=== PATIENT | female | born 1970 | race Caucasian/White ===

== ENCOUNTER → 2016-12-20 | Outpatient (CLI) | payer OTHER ==
[2016-12-20 10:45] LABS: Basophils % (A) 1 %; CH 30.4; CHCM 32.2; Eosinophils # (A) 0.1 k/uL (0-0.7); Eosinophils % (A) 2 %; HCT 39.4 % (34.0-46.0); HDW 2.18; HGB 12.2 gm/dL (11.4-16.0); Luc # (Auto) 0.12; Luc % (Auto) 2; Lymphocytes # (A) 2.1 k/uL (1.0-4.8); Lymphocytes % (A) 31 %; MCH 29.5 pg (25.0-35.0); Mean Platelet Volume 7.5; Monocytes # (A) 0.4 k/uL (0-1.0); Monocytes % (A) 5 %; Neutrophils # (A) 4.1 k/uL (1.3-7.7); Neutrophils % (A) 60 %; RBC 4.14 m/uL (3.80-5.40); RDW 12.4 % (11.5-15.5); WBC 6.7 k/uL (3.8-10.6); WBC (Perox) 6.54
== END | disposition home or self-care (01) ==
LOC: LABPAT 10:19
PROVIDERS: ATTEND Obstetrics & Gynecology
DX: Z01.812 Encounter for preprocedural laboratory examination (principal); N92.0 Excessive and frequent menstruation with regular cycle; Z31.84 Encounter for fertility preservation procedure
CPT/HCPCS: 85025

== ENCOUNTER 2016-12-31 07:49 | Day surgery (SDC) | payer OTHER ==
[2016-12-26 08:54] VITALS: BMI 24.0
--- NOTE | 2016-12-26 15:18 | HP ---
DATE OF ADMISSION: 12/31/16. This is a 46-year-old white female who presented initially from a consultation from Dr. Ivan's office with a request for NovaSure endometrial ablation for heavy crampy long menstrual cycles. Menses are occurring every 28 to 30 days, but are 7 days in duration and very heavy with large clots. Patient at the same time is requesting laparoscopic tubal ligation for contraceptive purposes. An endometrial biopsy has been performed in the office and this was within normal limits. Risks and benefits of the surgery have been discussed in detail. I have also discussed with the patient in very good option of Mirena IUD, which she is declining. The remaining review of systems is negative. PAST MEDICAL HISTORY: Significant for multiple sclerosis. PAST SURGICAL HISTORY: section in 1991. CURRENT MEDICATIONS: Baby aspirin daily. Vitamin B12 daily. Vitamin D3 daily. She uses a hair, skin and nails oral preparation along with atorvastatin 10 mg orally daily. She takes loratadine 10 mg as needed, magnesium oxide daily, Plavix daily. Tylenol [id number] as needed for pain. ALLERGIES: NONE known. SOCIAL HISTORY: Negative for alcohol or drug use. The patient does have a history of smoking 1 pack per day tobacco but quit in the past. FAMILY HISTORY: Family history is noncontributory. PHYSICAL EXAM: On exam, this is a pleasant white female, she is 5 feet 0 inches, 129 pounds, BMI is 25. Blood pressure 124/88 in the seated position. HEENT examination reveals good dentition. No thyromegaly, trachea in the midline. Breast exam reveals breasts to be bilaterally symmetric, no skin dimpling, nipple discharge, axillary adenopathy or discernible lesions or masses. Chest is clear to auscultation in all carlton anteriorly and posteriorly. Cardiac exam reveals regular rate and rhythm with no murmur, click or rub. ABDOMEN: Soft, nontender, no organosplenomegaly, scaphoid. No CVA tenderness. Extremities reveal no edema, good range of motion in all 4 extremities. On pelvic examination, external genitalia is well estrogenized and age appropriate. Cervix is small in nulliparous in appearance. The uterus is small, anteverted, mobile, nontender. Adnexa are small, equal bilaterally, symmetric, with no masses or enlargement. The rectal exam reveals good sphincter tone, no hemorrhoids or rectal masses are noted. No inguinal adenopathy is appreciated. IMPRESSION: Undesired fertility, menorrhagia, and severe dysmenorrhea. Patient requesting NovaSure ablation, hysteroscopy, laparoscopic tubal ligation with Filshie clips. PLAN: I discussed with the patient the risks and benefits of this surgery, along with reasonable alternatives. Other contraceptive choices have all been provided and declined. The risk of bleeding, infection, perforation or damage to bowel, bladder, ureters, blood vessels or indeed any pelvic or abdominal organs have all been discussed. Patient's questions have been answered to the best of my ability. She has been provided with written brochures to detail these procedures which she has reviewed.
[~2016-12-31 07:49] MED LIST: DEXAMETHASONE SOD PHOSPHATE 10 MG/ML 1 ML VIAL IV ONE; LACTATED RINGERS 1,000 ML IV SCH; MIDAZOLAM 2 MG/2 ML VIAL IV PRN; ONDANSETRON 4 MG/2 ML VIAL IVP ONE; Pre Op ABX Message 1 EACH MISC MISCELLANE ONE
[2016-12-31 08:23] VITALS: TEMP 97.4
[2016-12-31] MEDS ORDERED: LIDOCAINE 1% 20 ML VIAL (10MG/ML) FOR IV START SQ ONE (08:23)
[2016-12-31] MEDS ORDERED: SUCCINYLCHOLINE CHLORIDE 100 MG/5 ML SYR IV ONE (08:57)
[2016-12-31] MEDS ORDERED: MIDAZOLAM 2 MG/2 ML VIAL ONE (08:57)
[2016-12-31] MEDS ORDERED: GLYCOPYRROLATE 0.2 MG/ML 2 ML VIAL ONE (08:57)
[2016-12-31] MEDS ORDERED: PROPOFOL 10 MG/ML 20 ML VIAL IV ONE (08:57)
[2016-12-31] MEDS ORDERED: NEOSTIGMINE 1 MG/ML 10 ML VIAL ONE (08:57)
[2016-12-31] MEDS ORDERED: ePHEDrine 50 MG/ML 1 ML AMP ONE (08:57)
[2016-12-31] MEDS ORDERED: ROCURONIUM BROMIDE 10 MG/ML 10 ML VIAL IV ONE (08:57)
[2016-12-31] MEDS ORDERED: fentaNYL (PF) 50 MCG/ML 2 ML AMP ONE (08:57)
[2016-12-31] MEDS ORDERED: LIDOCAINE 1% INJ 10MG/ML (20 ML MDV) ONE (08:57)
[2016-12-31] MEDS ORDERED: ACETAMINOPHEN IV (For NPO) 1,000 MG/100 ML VIAL ONE (08:57)
[2016-12-31] MEDS ORDERED: BUPIVACAINE (PF) 0.25% 30 ML VIAL SQ ONE (09:31)
--- NOTE | 2016-12-31 09:37 | P.OP ---
Date of Procedure: 12/31/16 (Undesired fertility, menorrhagia, dysmenorrhea.) Preoperative Diagnosis: Undesired fertility, menorrhagia, dysmenorrhea. Postoperative Diagnosis: Same Procedure(s) Performed: Laparoscopic tubal ligation with Filshie clips, hysteroscopy, NovaSure endometrial ablation. Anesthesia: GETA Surgeon: Mariela Jackson Stand Grinder #1: Stated None Estimated Blood Loss (ml): 5 IV fluids (ml): 800 Urine output (ml): 50 Pathology: none sent Condition: stable Disposition: PACU Description of Procedure: Patient is brought to the operating suite where general anesthetic is administered without difficulty. She's placed in the dorsal lithotomy position. The appropriate timeout is performed to assure proper patient and procedural identification. Urine hCG is negative. Affirm it is given. The cervix, vagina, perineum and abdomen are all prepped and draped in the usual sterile fashion. The weighted speculum was placed into the vagina. The bladder is drained for 50 mL of clear yellow urine. The anterior lip of the cervix is grasped with a double-tooth tenaculum. The cervix is gently dilated using Hanks dilators. The hysteroscope was introduced and fluid is infused. The cavity is distended and inspected, there are no obvious polyps, fibroids, tumors, septa, defects. Hysteroscope was removed. Cervix is dilated to 12 mm. The NovaSure wand is seated and placed as directed. A uterine width of 3.8 cm is noted. Uterine length of 6 cm is calibrated. The instrument is properly seated and calibrated. It is properly enabled. For 103 seconds with a power of 125 W the procedure is carried out. When completed, the wand is reduced and removed. Hysteroscope was once again placed and the cavity is noted to be uniformly blanched. At this time the speculum was reinserted and the acorn cannula is attached to the double-tooth tenaculum. Attention is drawn to the abdominal cavity. A small infraumbilical incision is made with a scalpel. Veress needle was placed and placement is checked with hanging drop technique. The abdomen is insufflated under low filling pressures of approximate 5-6 mmHg for a total of 3.0 L of CO2 gas. Peritoneum was removed. Trocar is placed and the placement is noted to be atraumatic. A second incision is made suprapubically and under direct visualization a second trocar is placed. The uterus is then positioned anterior and to the side, the left fallopian tube is visualized in its entirety to the fimbriated end. A Filshie clip is placed in the isthmic portion of the tube with care to traverse the entire diameter of the tube into the mesal salpinx. Is carried out on the contralateral tube, again fimbriated and is identified, again the clip is placed entirely through the diameter of the isthmic portion of the tube into the mesal salpinx. Bilateral ovaries are inspected and noted to be normal. No evidence of endometriosis or adhesions is noted. The CO2 gas was allowed to diffuse. The trochars removed and the fascial defects are clean and dry. The incisions are closed with 4-0 undyed Vicryl in a subcuticular manner. The incisions are injected with quarter percent Marcaine to aid in postoperative analgesia. Steri-Strips and Mastisol are applied. Instrumentation is removed from the cervix, which is inspected and noted to be Clean and dry. All sponge needle and enhancement counts are correct at the end of the procedure. Patient is brought back to recovery room in very good condition with stable vital signs including blood pressure 130/75, pulse 80. She will follow-up with me in the office in 2 weeks as directed. A prescription for Tylenol 3 is given to be used as needed for analgesia.
[2016-12-31] MEDS: HYDROmorphone 1 MG/ML 1 ML SYRINGE IVP PRN ×4 (09:59→10:37)
[2016-12-31] MEDS ORDERED: Acetaminophen-Codeine 300-30mg TAB PO ONE (11:05)
[2016-12-31 11:16] VITALS: RESP 20
[2016-12-31] MEDS ORDERED: LACTATED RINGERS 1,000 ML IV ONE (12:48)
[2016-12-31] MEDS ORDERED: ONDANSETRON 4 MG/2 ML VIAL IVP ONE (12:49)
[2016-12-31 13:30] VITALS: BP 138/76; PULSE 86
== END 2016-12-31 14:19 | disposition home or self-care (01) ==
LOC: OR 07:49
PROVIDERS: ATTEND Obstetrics & Gynecology
DX: Z30.2 Encounter for sterilization (principal); N92.0 Excessive and frequent menstruation with regular cycle; N94.6 Dysmenorrhea, unspecified; F32.9 Major depressive disorder, single episode, unspecified; I73.9 Peripheral vascular disease, unspecified; Z79.02 Long term (current) use of antithrombotics/antiplatelets; Z79.82 Long term (current) use of aspirin; Z79.899 Other long term (current) drug therapy
CPT/HCPCS: 81025; 58671; 58563; J2250; J1100; J2710; J2405; J2001; J3010; J1170; J0131; J0330; J2704

== ENCOUNTER → 2017-03-10 | Outpatient (CLI) | payer OTHER ==
--- NOTE | 2017-03-11 07:53 | MM ---
Reason for exam: follow-up at short interval from prior study. Last mammogram was performed 6 months ago. History: Took hormonal contraceptives for 21 years. MG Diagnostic Mammo RT w CAD CC and MLO view(s) were taken of the right breast. Prior study comparison: September 06, 2016, right breast MG work up mamm w CAD RT. September 02, 2016, bilateral MG screening mammo w CAD. September 01, 2015, bilateral MG screening mammo w CAD. August 19, 2014, bilateral MG screening mammo w CAD. August 17, 2013, bilateral digital screening mammo w/CAD. The breast tissue is heterogeneously dense. This may lower the sensitivity of mammography. The questioned focal asymmetry upper outer quadrant is unchanged from older priors. These results were verbally communicated with the patient and result sheet given to the patient on 03/10/17. ASSESSMENT: Negative, BI-RAD 1 RECOMMENDATION: Return to routine screening mammogram schedule for both breasts. Back on schedule.
== END | disposition home or self-care (01) ==
LOC: RADMAMWWP 03-03 15:43
PROVIDERS: ATTEND Family Medicine
DX: R92.8 Other abnormal and inconclusive findings on diagnostic imaging of breast (principal)

== ENCOUNTER → 2017-12-31 | Outpatient (CLI) | payer OTHER ==
--- NOTE | 2018-01-01 10:30 | MM ---
Reason for exam: screening (asymptomatic). Last mammogram was performed 10 months ago. History: Took hormonal contraceptives for 21 years. Physical Findings: A clinical breast exam by your physician is recommended on an annual basis and results should be correlated with mammographic findings. MG Screening Mammo w CAD Bilateral CC and MLO view(s) were taken. Prior study comparison: March 10, 2017, right breast MG diagnostic mammo RT w CAD. September 06, 2016, right breast MG work up mamm w CAD RT. The breast tissue is heterogeneously dense. This may lower the sensitivity of mammography. No suspicious abnormality. No significant changes when compared with prior studies. ASSESSMENT: Negative, BI-RAD 1 RECOMMENDATION: Routine screening mammogram of both breasts in 1 year.
== END | disposition home or self-care (01) ==
LOC: RADMAMWWP 16:59
PROVIDERS: ATTEND Family Medicine
DX: Z12.31 Encounter for screening mammogram for malignant neoplasm of breast (principal)
CPT/HCPCS: 77067

== ENCOUNTER → 2018-08-15 | Outpatient (CLI) | payer BC ==
[2018-08-15 11:39] LABS: Basophils % (A) 1 %; Eosinophils # (A) 0.1 k/uL (0-0.7); Eosinophils % (A) 2 %; HCT 38.7 % (34.0-46.0); HGB 12.3 gm/dL (11.4-16.0); Lymphocytes # (A) 1.8 k/uL (1.0-4.8); Lymphocytes % (A) 33 %; MCH 29.4 pg (25.0-35.0); MCHC 31.8 g/dL (31.0-37.0); MCV 92.5 fL (80.0-100.0); Mean Platelet Volume 6.9; Monocytes # (A) 0.2 k/uL (0-1.0); Monocytes % (A) 4 %; Neutrophils # (A) 3.2 k/uL (1.3-7.7); Neutrophils % (A) 59 %; Platelet Count 346 k/uL (150-450); RBC 4.18 m/uL (3.80-5.40); RDW 12.5 % (11.5-15.5); WBC 5.4 k/uL (3.8-10.6)
[2018-08-15 11:53] LABS: ALT 20 U/L (9-52); AST 21 U/L (14-36); Alkaline Phosphatase 58 U/L (38-126); Anion Gap 7 mmol/L; Blood Urea Nitrogen 12 mg/dL (7-17); Carbon Dioxide 26 mmol/L (22-30); Chloride 108 mmol/L (98-107); Cholesterol 142 mg/dL (<200); Creatine Kinase 76 U/L (30-135); Glucose 103 mg/dL (74-99); HDL Cholesterol 58 mg/dL (40-60); LDL Cholesterol,Calculated 70 mg/dL (0-99); Potassium 4.1 mmol/L (3.5-5.1); Sodium 141 mmol/L (137-145); Total Bilirubin 0.5 mg/dL (0.2-1.3); Total Protein 6.9 g/dL (6.3-8.2); Triglycerides 70 mg/dL (<150)
[2018-08-15 12:10] LABS: T4, Free (Free Thyroxine) 0.59 ng/dL (0.78-2.19)
[2018-08-15 18:45] LABS: Hemoglobin A1C 5.7 % (4.0-6.0)
== END | disposition home or self-care (01) ==
LOC: LABWHC1 11:19
PROVIDERS: ATTEND Family Medicine
DX: N39.0 Urinary tract infection, site not specified (principal); E78.5 Hyperlipidemia, unspecified; I77.3 Arterial fibromuscular dysplasia
CPT/HCPCS: 36415; 80053; 80061; 82550; 82607; 83036; 84439; 84443; 85025

== ENCOUNTER → 2019-01-23 | Outpatient (CLI) | payer BC ==
[2019-01-23 17:26] LABS: T4, Free (Free Thyroxine) 0.8 ng/dL (0.80-1.80)
== END | disposition home or self-care (01) ==
LOC: LABWHC1 11:23
PROVIDERS: ATTEND Family Medicine
DX: E06.9 Thyroiditis, unspecified (principal); N18.9 Chronic kidney disease, unspecified
CPT/HCPCS: 36415; 82565; 84439; 84443; 84481; 84520; 86376

== ENCOUNTER → 2019-06-14 | Outpatient (CLI) | payer BC ==
--- NOTE | 2019-06-14 09:43 | MM ---
Reason for exam: additional evaluation requested from abnormal screening. Last mammogram was performed 1 month ago. History: Took hormonal contraceptives for 21 years. Physical Findings: Nurse did not find any significant physical abnormalities on exam. MG 3D Work Up W/Cad LT Spot compression CC and spot compression MLO view(s) were taken of the left breast. Prior study comparison: May 25, 2019, bilateral MG screening mammo w CAD. December 31, 2017, bilateral MG screening mammo w CAD. The breast tissue is heterogeneously dense. This may lower the sensitivity of mammography. No significant new findings when compared with previous films. These results were verbally communicated with the patient and result sheet given to the patient on 06/14/19. ASSESSMENT: Probably benign, BI-RAD 3 RECOMMENDATION: Follow-up diagnostic mammogram of the left breast in 6 months.
== END | disposition home or self-care (01) ==
LOC: RADMAMWWP 08:58
PROVIDERS: ATTEND Family Medicine
DX: R92.8 Other abnormal and inconclusive findings on diagnostic imaging of breast (principal)
CPT/HCPCS: 77061; 77065

== ENCOUNTER → 2020-02-22 | Outpatient (CLI) | payer BC ==
--- NOTE | 2020-02-22 13:44 | MM ---
Reason for exam: follow-up at short interval from prior study. Last mammogram was performed 8 months ago. History: Took hormonal contraceptives for 21 years. Physical Findings: Nurse did not find any significant physical abnormalities on exam. MG 3D Diag Mammo W/Cad LT CC, MLO, and ML view(s) were taken of the left breast. Prior study comparison: June 14, 2019, left breast MG 3d work up w/cad LT. May 25, 2019, bilateral MG screening mammo w CAD. The breast tissue is heterogeneously dense. This may lower the sensitivity of mammography. There is no discrete abnormality. Benign left axillary lymph nodes. These results were verbally communicated with the patient and result sheet given to the patient on 02/22/20. ASSESSMENT: Benign, BI-RAD 2 RECOMMENDATION: Return to routine screening mammogram schedule for both breasts. Back on schedule for May 2020.
== END | disposition home or self-care (01) ==
LOC: RADMAMWWP 12:53
PROVIDERS: ATTEND Family Medicine
DX: R92.2 Inconclusive mammogram (principal)
CPT/HCPCS: 77061; 77065

== ENCOUNTER → 2020-10-17 | Outpatient (CLI) | payer BC ==
--- NOTE | 2020-10-19 08:45 | MM ---
Reason for exam: screening (asymptomatic). Last mammogram was performed 8 months ago. History: Took hormonal contraceptives for 21 years. Physical Findings: A clinical breast exam by your physician is recommended on an annual basis and results should be correlated with mammographic findings. MG 3D Screening Mammo W/Cad Bilateral CC and MLO view(s) were taken. Prior study comparison: February 22, 2020, left breast MG 3d diag mammo w/cad LT. June 14, 2019, left breast MG 3d work up w/cad LT. The breast tissue is heterogeneously dense. This may lower the sensitivity of mammography. There is chronic nodularity in the left breast. No significant changes when compared with prior studies. ASSESSMENT: Benign, BI-RAD 2 RECOMMENDATION: Routine screening mammogram of both breasts in 1 year.
== END | disposition home or self-care (01) ==
LOC: RADMAMWWP 08:21
PROVIDERS: ATTEND Family Medicine
DX: Z12.31 Encounter for screening mammogram for malignant neoplasm of breast (principal)
CPT/HCPCS: 77063; 77067

== ENCOUNTER → 2020-10-17 | Outpatient (CLI) | payer BC ==
--- NOTE | 2020-10-18 07:08 | US ---
EXAMINATION TYPE: US transvaginal DATE OF EXAM: 10/17/2020 COMPARISON: 10/03/2016 CLINICAL HISTORY: R19.00 PELVIC SWELLING W/MASS. TECHNIQUE: Transvaginal (TV). Date of LMP: 09-19-20 EXAM MEASUREMENTS: Uterus: 12.8 x 5.6 x 9.0 cm Endometrial Stripe: see below Right Ovary: 2.5 x 1.5 x 1.6 cm Left Ovary: 1.7 x 1.1 x 1.5 cm 1. Uterus: Anteverted, enlarged, hyperechoic, mixed echogenicity vascular mass within the uterus. It is difficult to discern whether this is in the endometrium or whether it displaces the endometrium 2. Endometrium: see above 3. Right Ovary: wnl 4. Left Ovary: wnl 5. Bilateral Adnexa: wnl 6. Posterior cul-de-sac: wnl IMPRESSION: Mass as noted above which may reflect leiomyoma. Mass of other etiology is difficult to exclude.
== END | disposition home or self-care (01) ==
LOC: RADUSWWP 15:34
PROVIDERS: ATTEND Family Medicine
DX: N85.8 Other specified noninflammatory disorders of uterus (principal)
CPT/HCPCS: 76830

== ENCOUNTER → 2021-01-31 | Outpatient (CLI) | payer BC ==
--- NOTE | 2021-01-31 22:49 | US ---
EXAMINATION TYPE: US transvaginal DATE OF EXAM: 01/31/2021 COMPARISON: US dated 10/17/2020 CLINICAL HISTORY: N92.4 preclimacteric menorrhagia or metrorrhagia. TECHNIQUE: Transvaginal (TV). Date of LMP: 01/11/2021 EXAM MEASUREMENTS: Uterus: 10.7 x 6.9 x 8.4 cm Endometrial Stripe: 3.9 cm Right Ovary: 2.6 x 1.6 x 2.9 cm Left Ovary: 2.8 x 1.6 x 2.6 cm 1. Uterus: Anteverted wnl 2. Endometrium: Grossly thickened and heterogeneous. 3. Right Ovary: wnl 4. Left Ovary: wnl 5. Bilateral Adnexa: wnl 6. Posterior cul-de-sac: no free fluid Anteverted uterus. Marked heterogeneous and thickened endometrium is felt present. This correlates wi th prior ultrasound. No free fluid. Both ovaries seen. No adnexal masses. IMPRESSION: As above. Markedly thickened heterogeneous endometrium felt present not significant arzate e from prior. Neoplasm cannot be excluded. Further investigation with endometrial biopsy advised.
== END ==
LOC: RADUSWWP 16:53
PROVIDERS: ATTEND Family Medicine
DX: R93.89 Abnormal findings on diagnostic imaging of other specified body structures (principal)
CPT/HCPCS: 76830

== ENCOUNTER → 2021-04-17 | Outpatient (CLI) | payer BC ==
[2021-04-17 19:17] LABS: INR 0.92 (0.90-1.11); Prothrombin Time 10.1 sec (9.9-11.9)
[2021-04-17 21:01] LABS: Chol/HDL Ratio 2.91
== END | disposition home or self-care (01) ==
LOC: LABWHC1 10:59
PROVIDERS: ATTEND Family Medicine
DX: I25.10 Atherosclerotic heart disease of native coronary artery without angina pectoris (principal); Z20.822 Contact with and (suspected) exposure to COVID-19
CPT/HCPCS: 80061; 84443; 85610; 36415; U0003; C9803; U0005

== ENCOUNTER → 2021-04-17 | Outpatient (CLI) | payer BC ==
[2021-04-17 11:50] LABS: Basophils % (A) 1 %; Eosinophils # (A) 0.1 k/uL (0-0.7); Eosinophils % (A) 1 %; HCT 38.5 % (34.0-46.0); HGB 12.3 gm/dL (11.4-16.0); Lymphocytes # (A) 1.9 k/uL (1.0-4.8); Lymphocytes % (A) 31 %; MCH 29.1 pg (25.0-35.0); MCHC 31.9 g/dL (31.0-37.0); MCV 91.2 fL (80.0-100.0); Mean Platelet Volume 7.4; Monocytes # (A) 0.3 k/uL (0-1.0); Monocytes % (A) 4 %; Neutrophils # (A) 3.8 k/uL (1.3-7.7); Neutrophils % (A) 62 %; Platelet Count 371 k/uL (150-450); RBC 4.22 m/uL (3.80-5.40); RDW 13.1 % (11.5-15.5); WBC 6.1 k/uL (3.8-10.6)
[2021-04-17 12:06] LABS: African American GFR (CKD) >90 (>60 ml/min/1.73 sqM); Anion Gap 3 mmol/L; Blood Urea Nitrogen 10 mg/dL (7-17); Carbon Dioxide 30 mmol/L (22-30); Chloride 104 mmol/L (98-107); Glucose 102 mg/dL (74-99); Non-African American GFR(CKD) >90 (>60 ml/min/1.73 sqM); Sodium 137 mmol/L (137-145)
--- NOTE | 2021-04-17 12:29 | XR ---
EXAMINATION TYPE: XR chest 2V DATE OF EXAM: 04/17/2021 COMPARISON: None HISTORY: Presurgical evaluation TECHNIQUE: Frontal and lateral views of the chest are obtained. FINDINGS: Heart size is within normal limits. No focal consolidation, pneumothorax or pleural effusi on. Mild degenerative changes of the thoracic spine. IMPRESSION: 1. No acute pulmonary disease.
== END | disposition home or self-care (01) ==
LOC: LABPAT 11:02
PROVIDERS: ATTEND Obstetrics & Gynecology
DX: Z01.818 Encounter for other preprocedural examination (principal); N92.1 Excessive and frequent menstruation with irregular cycle; I10 Essential (primary) hypertension; I25.10 Atherosclerotic heart disease of native coronary artery without angina pectoris; D64.9 Anemia, unspecified
CPT/HCPCS: 71046; 80051; 82565; 82947; 84520; 85025; 87086

== ENCOUNTER 2021-04-23 07:22 | Day surgery (SDC) | payer BC ==
[2021-04-17 09:23] VITALS: BMI 26.4
--- NOTE | 2021-04-19 16:26 | HP ---
HISTORY AND PHYSICAL DATE OF SURGERY: 04/23/2021 HISTORY OF PRESENT ILLNESS: The patient is a 50-year-old 1, para 1-0-0-1, initially referred by Dr. Ivan for evaluation of menometrorrhagia. She has a several-year history of very irregular bleeding in a completely random pattern. She has been tried on multiple versions of cyclic progesterone in the past with metered success at best. She is currently on progesterone for day 20 to 30 of each month. She does have a history of having had an endometrial ablation in 2017, which has now failed. She additionally carries a condition which precludes estrogen products, as she is hypercoagulable potentially. She presents on referral with interest in definitive therapy with hysterectomy. She also has a history of a previous section and, as a result of this as well as her findings on exam, is only a candidate for a Da Marcela or open approach. PAST MEDICAL HISTORY: Significant for menometrorrhagia and additionally she has a history of multiple sclerosis. PAST SURGICAL HISTORY: Significant for section in 1991. She had hysteroscopy with NovaSure endometrial ablation as well as tubal ligation in 2017. There were no anesthetic concerns. OBSTETRICAL HISTORY: 1, para 1-0-0-1 with one term section without complications, though it was emergent in nature. Current method of contraception is tubal ligation. GYNECOLOGIC HISTORY: Unremarkable, with no history of any infections to include STDs and is otherwise as noted in the history of present illness. FAMILY HISTORY: Noncontributory. 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 She is a nonsmoker currently, though she does have a history of one pack per day in the past. She denies any other social concerns. CURRENT MEDICATIONS: Current medications include: 1. Baby aspirin daily. 2. Benicar daily. 3. Prozac 20 mg daily. 4. Ibuprofen every 6 hours p.r.n. 5. Lipitor 10 mg daily. 6. Loratadine 10 mg daily. 7. Magnesium 300 mg daily. 8. Meclofenamate 100 mg as needed. 9. Olmesartan medoxomil 5 mg daily. 10.Plavix 75 mg daily. 11.Provera daily for 14 days of the month. 12.Vitamin D orally daily. ALLERGIES: NO KNOWN DRUG ALLERGIES. REVIEW OF SYSTEMS: Confined to history of present illness. PHYSICAL EXAMINATION: Vital signs are stable. The patient is afebrile. In general, this is a well- developed, well-nourished white female in no acute distress. Her heart has a regular rhythm and rate without murmur. Her lungs are clear to auscultation bilaterally in all carlton. Her abdomen is nondistended, has normoactive bowel sounds, is soft, nontender, and without any palpable masses, hepatosplenomegaly or hernias. Her extremities are without any cyanosis, clubbing or edema and are nontender to palpation bilaterally. Pelvic examination demonstrates normal external genitalia and BUS with normal vaginal mucosa and cervix. There is no cervical motion tenderness. The uterus is approximately 4-5 weeks in size, anteverted, mobile, nontender and normal in shape. The adnexa are normal and nontender without mass bilaterally. Rectovaginal examination is deferred. ASSESSMENT AND PLAN: Menometrorrhagia. The patient has a history of failed ablation. She is only a candidate for progestational hormonal manipulation or hysterectomy, given her history of hypercoagulable state. She has requested to undergo definitive therapy with hysterectomy. As a result, we will proceed with Da Marcela robotically assisted laparoscopic hysterectomy with bilateral salpingectomy and diagnostic cystoscopy. The risks and complications of the procedures have been thoroughly discussed, including the risk for bleeding, bleeding requiring transfusion, infection and injury to local structures to specifically include the bowel, bladder and ureters. We additionally went on to discuss injuries that are unique to Da Marcela surgery to specifically include thermal injury and vaginal cuff dehiscence. She understands all this and agreed to proceed. She has undergone preoperative medical clearance. MMODL / IJN: [id number] /
[~2021-04-23 07:22] MED LIST changes: -DEXAMETHASONE SOD PHOSPHATE 10 MG/ML 1 ML VIAL IV ONE; +DEXAMETHASONE SOD PHOSPHATE 4 MG/ML 1 ML VIAL IV ONE; +HYDROmorphone 0.5 MG/0.5 ML SYRINGE IVP PRN; -MIDAZOLAM 2 MG/2 ML VIAL IV PRN; -Pre Op ABX Message 1 EACH MISC MISCELLANE ONE; +SCOPOLAMINE 1.5MG/72HR PATCH TRANSDERM ONE
[2021-04-23] MEDS ORDERED: LIDOCAINE 1% (10MG/ML) FOR IV START INTRADERMA ONE (08:22)
[2021-04-23] MEDS ORDERED: MIDAZOLAM 2 MG/2 ML VIAL ONE (09:15)
[2021-04-23] MEDS ORDERED: SUCCINYLCHOLINE CHLORIDE 100 MG/5 ML SYR IV ONE (09:15)
[2021-04-23] MEDS ORDERED: ROCURONIUM 10 MG/ML (5 ML VIAL) IV ONE (09:15)
[2021-04-23] MEDS ORDERED: LIDOCAINE 1% INJ 10MG/ML (20 ML MDV) ONE (09:15)
[2021-04-23] MEDS ORDERED: fentaNYL (PF) 50 MCG/ML 2 ML AMP ONE (09:15)
[2021-04-23] MEDS ORDERED: PROPOFOL 10 MG/ML 20 ML VIAL IV ONE (09:15)
[2021-04-23] MEDS ORDERED: diphenhydrAMINE 50 MG/ML 1 ML VIAL ONE (09:15)
[2021-04-23] MEDS ORDERED: GLYCOPYRROLATE 0.2 MG/ML 2 ML VIAL ONE (09:15)
[2021-04-23] MEDS ORDERED: BUPIVACAINE (PF) 0.25% 30 ML VIAL SQ ONE ×2 (09:52→11:41)
[2021-04-23] MEDS ORDERED: LACTATED RINGERS 1,000 ML IV ONE (10:19)
[2021-04-23] MEDS ORDERED: diphenhydrAMINE 50 MG/ML 1 ML VIAL IVP PRN (11:42)
[2021-04-23] MEDS ORDERED: KETOROLAC 15 MG/ML 1 ML VIAL IVP PRN (11:42)
[2021-04-23] MEDS ORDERED: Acetaminophen-Codeine 300-30mg TAB PO PRN ×2 (11:42)
[2021-04-23] MEDS ORDERED: METOCLOPRAMIDE 5 MG/ML 2 ML VIAL IVP PRN (11:42)
[2021-04-23] MEDS ORDERED: SIMETHICONE 80 MG CHEWABLE PO PRN (11:42)
[2021-04-23] MEDS ORDERED: IBUPROFEN 600 MG TAB PO PRN (11:42)
[2021-04-23] MEDS ORDERED: ONDANSETRON 4 MG/2 ML VIAL IVP PRN (11:42)
--- NOTE | 2021-04-23 11:58 | P.OP ---
Date of Procedure: 04/23/21 Preoperative Diagnosis: #1. Menometrorrhagia #2. Failed endometrial ablation Postoperative Diagnosis: Same Procedure(s) Performed: #1. Da Marcela robotically assisted laparoscopic hysterectomy with bilateral salpingectomy #2. Diagnostic cystoscopy Anesthesia: NIKOLE Surgeon: Rick Herron Speed Reading Teacher #1: Virgen Hightower Estimated Blood Loss (ml): 150 IV fluids (ml): 1,500 Urine output (ml): 250 Pathology: other (Uterus and bilateral fallopian tubes) Condition: stable Disposition: PACU Operative Findings: Preoperative pelvic examination demonstrated a roughly 5 week anteverted mobile normal shaped uterus with normal adnexa bilaterally. Intraoperatively, the uterus was noted to be fairly globular in nature. The bilateral ovaries were normal and the fallopian tubes both had evidence of previous tubal occlusion with Filshie clips, both Filshie clips were apparent in the pelvis below the right Filshie clip was noted to be anterior to the uterus and scarred into an area near the previous scar. The uterus was significantly difficult to remove through the vagina but was ultimately accomplished though the cervix did tear from the body of the uterus. Using the diagnostic cystoscope, the bilateral ureteral hallux were seen to be peristalsing and releasing urine into the bladder. The bladder did appear to be somewhat bruised in nature, likely from the difficulty removing the uterus through the vagina. Description of Procedure: The patient was prepped and draped in usual fashion after general endotracheal anesthesia was administered by the anesthesiologist. A weighted speculum was placed and the bladder catheterized with Grubbs catheter. The anterior lip of the cervix was grasped with a single-tooth tenaculum and the cervix dilated to admit the [facility] uterine manipulator with a medium cup. Once it was affixed to the cervix, attention was turned to the abdomen. A site was selected approximate 3-4 cm above the umbilicus in the midline where an 8 mm incision was made in the transverse plane allowing insertion of an 8 mm optical da Marcela port under direct visualization without difficulty. A pneumoperitoneum was then established. A site was selected approximately 10-12 cm lateral on the right side from the video port and approximate 4 cm inferiorly where an 8 mm incision was made in the transverse plane allowing insertion of an 8 mm da Marcela port under direct visualization without difficulty. A mirroring port was laced in the left lower quadrant. The area between the left port and the optical port was bisected and a site selected approximately 3-4 cm above the optical port where a 10 mm incision was made transverse plane allowing insertion of a 10 mm medical assistant secretary port without difficulty. The robot was then docked to the patient without difficulty. The right arm was loaded with a monopolar cautery scissors on the left arm was loaded with a [place] bipolar cautery forceps. I then presented to the console and began work on the right side. The distal portion of the right fallopian tube was removed using cautery followed by monopolar cutting and placed into the anterior cul-de-sac. The remainder of the tube was then divided to the uterus where the utero-ovarian ligament were cauterized and cut up and through the round ligament. The bladder peritoneum was then developed across the midline. In the process of skeletonizing the vasculature, a vessel was incidentally opened causing some bleeding which was controlled relatively quickly with the [place] bipolar cautery forceps. The bladder. Was further developed and attention turned to the other side. The fallopian tube on this side was able to be removed continuously with the specimen using bipolar cautery followed by monopolar cutting scissors. Again the utero-ovarian ligament and round ligament were cauterized and cut. Once the broad ligament was noted. The bladder peritoneum was developed across the midline and joint to the previously started incision. The bladder was then elevated and reflected distally both bluntly and sharply. Skeletonization of the vessels on the left side was then carried out after which time there were cauterized and cut. The vessels on the other side of the uterus were then divided as well. Once it was established at the bladder was distal to the site of the intended incision, the vagina was sealed and the cervical cup was found as the anterior vaginal cuff was opened sharply with the monopolar cautery scissors. Dissection was carried out circumferentially around the entire cervix following the cup and cauterizing as necessary. Once the uterus was free of the vaginal cuff, it was brought down into the pelvis. There was a fairly significant amount of difficulty encountered as the uterus was significantly larger than the opening in the vagina. Ultimately, using a number of different manipulation techniques, the uterus was delivered through the vagina and set aside. The fallopian tube which is been previously placed in the anterior cul-de-sac had been passed through the vagina prior to the uterus. During the process of removing the uterus, the other fallopian tube was incidentally lysed and was passed into the vagina as well. The vaginal cuff was then resealed and a stitch of 0 Stratafix suture passed into the abdomen. The monopolar cautery scissors were replaced with a laparoscopic suturing device which was utilized to close the vaginal cuff from the right margin to the left margin in standard fashion. Thorough suction irrigation was then carried out and hemostasis appeared to be excellent. Then returned to the patient and remove the Grubbs catheter allowing placement of a diagnostic cystoscope. Bladder was filled with approximately 150-200 mL of normal saline. The bilateral ureteral elixir were seen and both noted to have ureteral jets demonstrating peristalsis bilaterally. The cystoscope was then removed and the Grubbs catheter replaced. The robot was undocked and the ports removed allowing evacuation of the Lay medium. The skin was reapproximated with subcuticular stitches of 4-0 Vicryl followed by half-inch Steri-Strips placed with Mastisol. The incisions were then infused with a total of 10 mL of half percent Marcaine without epinephrine equally divided among the 4 incisions. Past medical loss for the case is approximately 150 mL. There were no compli cations. All sponge, instrument, and needle counts were correct. The patient tolerated the procedure well and proceeded to the recovery room in stable condition.
[2021-04-23] MEDS: LACTATED RINGERS 1,000 ML IV SCH ×2 (12:45→13:12)
[2021-04-23 16:03] VITALS: RESP 16
[2021-04-23] MEDS ORDERED: ATORVASTATIN 10 MG TAB PO SCH (21:00)
[2021-04-23] MEDS ORDERED: SENNOSIDES-DOCUSATE SODIUM 1 EACH TAB PO SCH (21:00)
[2021-04-23] MEDS ORDERED: LOSARTAN 50 MG TAB PO SCH (21:00)
[2021-04-24] MEDS: HEPARIN SODIUM,PORCINE/PF 5,000 UNIT/0.5 ML SYRINGE SQ SCH ×2 (00:03→08:26)
[2021-04-24 06:39] LABS: Basophils % (A) 0 %; Eosinophils # (A) 0.1 k/uL (0-0.7); Eosinophils % (A) 1 %; HCT 30.3 % (34.0-46.0); HGB 10.6 gm/dL (11.4-16.0); Lymphocytes # (A) 2.2 k/uL (1.0-4.8); Lymphocytes % (A) 22 %; MCH 31.3 pg (25.0-35.0); MCHC 34.9 g/dL (31.0-37.0); MCV 89.5 fL (80.0-100.0); Mean Platelet Volume 7.5; Monocytes # (A) 0.5 k/uL (0-1.0); Monocytes % (A) 5 %; Neutrophils % (A) 71 %; Platelet Count 317 k/uL (150-450); RBC 3.38 m/uL (3.80-5.40); RDW 13.1 % (11.5-15.5); WBC 9.9 k/uL (3.8-10.6)
[2021-04-24 07:54] VITALS: BP 129/83; PULSE 93; TEMP 97.9
--- NOTE | 2021-04-24 08:34 | P.DS ---
Providers Expected date of discharge: 04/24/21 Attending physician: Rick Herron Primary care physician: [facility] Course: The patient is a 50-year-old patient who initially prevented in consultation with complaints of irregular and heavy bleeding despite having undergone previous endometrial ablation. She presented requesting definitive therapy with hysterectomy and carried in history of her previous section. Additionally, her exam before out very little uterine descensus. As a result, she was counseled regarding da Marcela robotically assisted laparoscopic hysterectomy with bilateral salpingectomy and subsequent diagnostic cystoscopy. She agreed to proceed was taken the operating room where she underwent these procedures and an uncomplicated fashion. Her postoperative course was unremarkable with vital signs remaining stable and her temperature was afebrile throughout. She was deemed stable for discharge on postoperative day #1 was discharged home to follow-up in the office in 2 weeks for incision checks and recheck and then 8 weeks routinely. Discharge instructions included calling for any significantly increased bleeding or signs or symptoms of infection to include fever, increasing pain, vaginal discharge, or anything else concerning for infection. She is additionally instructed to call for any incisional concerns. She was also instructed to do no heavy lifting over the next 6-8 weeks and to abstain from anything in the vagina for at least 8 weeks time to include intercourse. She understood her instructions and agrees to follow up as noted above. Discharge medications included her home medications though she is to wait to restart her Plavix until approximately 3-4 days after surgery. She was provided with prescription for Tylenol 3, 1-2 by mouth every 6 hours when necessary pain, #20 dispensed with no refills. Hemoglobin at discharge was approximately 10.6. Procedures: #1. Da Marcela robotically assisted laparoscopic hysterectomy with bilateral salpingectomy #2. Diagnostic cystoscopy Patient Condition at Discharge: Stable Plan - Discharge Summary Discharge Rx Participant: Yes New Discharge Prescriptions: No Action Magnesium Oxide [Mag-Ox] 400 mg PO DAILY Cyanocobalamin [Vitamin B-12] 500 mcg PO DAILY Clopidogrel [Plavix] 75 mg PO DAILY Cholecalciferol [Vitamin D3] 1,000 unit PO DAILY Acetaminophen [Tylenol] 325 mg PO Q4H PRN PRN Reason: Pain Loratadine [Claritin] 10 mg PO Q48H Atorvastatin [Lipitor] 10 mg PO HS Aspirin 81 mg PO DAILY Multivit with Calcium,Iron,Min [Women's Multivitamin] 1 each PO DAILY Olmesartan [Benicar] 10 mg PO HS Ibuprofen [Motrin Ib] 200 mg PO Q8H Vitamin C/Biotin [Hair, Skin and Nails] 1 tab PO DAILY Cider Vinegar [Apple Cider Vinegar] 600 mg PO DAILY Cetirizine HCl [Zyrtec] 10 mg PO Q48H FLUoxetine HCL [PROzac] 20 mg PO DAILY Discharge Medication List Acetaminophen [Tylenol] 325 mg PO Q4H PRN 12/26/16 [History] Aspirin 81 mg PO DAILY 12/26/16 [History] Atorvastatin [Lipitor] 10 mg PO HS 12/26/16 [History] Cholecalciferol [Vitamin D3] 1,000 unit PO DAILY 12/26/16 [History] Clopidogrel [Plavix] 75 mg PO DAILY 12/26/16 [History] Cyanocobalamin [Vitamin B-12] 500 mcg PO DAILY 12/26/16 [History] Loratadine [Claritin] 10 mg PO Q48H 12/26/16 [History] Magnesium Oxide [Mag-Ox] 400 mg PO DAILY 12/26/16 [History] Multivit with Calcium,Iron,Min [Women's Multivitamin] 1 each PO DAILY 12/26/16 [History] Cetirizine HCl [Zyrtec] 10 mg PO Q48H 04/17/21 [History] Cider Vinegar [Apple Cider Vinegar] 600 mg PO DAILY 04/17/21 [History] FLUoxetine HCL [PROzac] 20 mg PO DAILY 04/17/21 [History] Ibuprofen [Motrin Ib] 200 mg PO Q8H 04/17/21 [History] Olmesartan [Benicar] 10 mg PO HS 04/17/21 [History] Vitamin C/Biotin [Hair, Skin and Nails] 1 tab PO DAILY 04/17/21 [History] Follow up Appointment(s)/Referral(s): Rick Herron MD [STAFF PHYSICIAN] - 2 Weeks Patient Instructions/Handouts: *Surgery [facility] - Scopalamine Patch Instructions Discharge Disposition: HOME SELF-CARE
== END 2021-04-24 09:30 | disposition home or self-care (01) ==
LOC: OR 07:22 → 4FBP 11:42 → OR 04-24 09:30
PROVIDERS: ATTEND Obstetrics & Gynecology
DX: Z98.891 History of uterine scar from previous surgery (principal); D25.1 Intramural leiomyoma of uterus; N80.0 Endometriosis of uterus; N83.8 Other noninflammatory disorders of ovary, fallopian tube and broad ligament; N84.0 Polyp of corpus uteri; N94.89 Other specified conditions associated with female genital organs and menstrual cycle; N92.1 Excessive and frequent menstruation with irregular cycle; Z79.02 Long term (current) use of antithrombotics/antiplatelets; Z79.82 Long term (current) use of aspirin; Z79.899 Other long term (current) drug therapy; F32.9 Major depressive disorder, single episode, unspecified; Z79.1 Long term (current) use of non-steroidal anti-inflammatories (NSAID)
CPT/HCPCS: 81025; 86900; 86901; 85025; 86850; 88307; 58571; J1100; J2765; J0690; J2405; J1885; J1644